=== PATIENT | female | born 1950 | race Caucasian/White ===

== ENCOUNTER 2017-10-19 17:28 | Emergency (ER) | payer MEDICARE ==
[2016-06-22 09:03] VITALS: BMI 31.0
[~2017-10-19 17:28] MED LIST: CYCLOBENZAPRINE5 MG PO
[2017-10-19 18:16] LABS: BASOPHILS 0.3 % (0-2); EOSINOPHILS 1.7 % (0-7); HEMATOCRIT 38.5 % (36.0-48.0); HEMOGLOBIN 12.7 g/dL (12-16); IMMATURE GRANULOCYTES 0.1 % (0-5); LYMPHOCYTES 31.1 % (15-50); MCH 30.8 pg (26.0-34.0); MCV 93.2 fL (80.0-100.0); MEAN PLATELET VOLUME 11.4 fL (7.4-10.4); MONOCYTES 9.2 % (2-11); NEUTROPHILS 57.6 % (40-80); PLATELET COUNT 206 10x3/uL (130-400); RBC 4.13 10x6/uL (4.00-5.40); RDW 13.3 % (11.5-14.5); WBC 7.3 10x3/uL (4.8-10.8)
[2017-10-19 18:19] LABS: ALBUMIN 3.8 g/dL (3.4-5.0); ALKALINE PHOSPHATASE 63 U/L (46-116); ALT (SGPT) 18 U/L (10-68); BILIRUBIN - TOTAL 0.26 mg/dL (0.2-1.3); CALC OSMOLALITY 277 mosm/kg (275-300); CALCIUM 9.2 mg/dL (8.5-10.1); CARBON DIOXIDE 27.2 mmol/L (21.0-32.0); CHLORIDE - SERUM 103 mmol/L (98-107); CREATININE - SERUM 0.9 mg/dL (0.6-1.3); GLUCOSE 121 mg/dL (74-106); POTASSIUM - SERUM 3.5 mmol/L (3.5-5.1); PROTEIN - SERUM 7.4 g/dL (6.4-8.2); SODIUM 139 mmol/L (136-145); UREA NITROGEN 11 mg/dL (7-18); eGFR NON AFRICAN AMERICAN 66 mL/min (90-120)
[2017-10-19 18:30] LABS: CHOL - HDL RATIO 8.4 ratio (2.3-4.1); CHOLESTEROL, TOTAL 278 mg/dL (0-200); CKMB 0.4 U/L (0.0-3.6); CREATINE KINASE 64 UL (21-215); HDL CHOLESTEROL 33 mg/dL (32-96); TRIGLYCERIDE 443 mg/dL (30-200); TROPONIN-I < 0.017 ng/mL (0.000-0.060)
[2017-10-19 18:42] LABS: AMYLASE - SERUM 55 U/L (25-115); LIPASE 302 U/L (73-393)
== END 2017-10-19 21:06 | disposition home or self-care (01) ==
LOC: D.ER 17:28
PROVIDERS: Family Medicine
DX: K59.00 Constipation, unspecified (principal); K21.9 Gastro-esophageal reflux disease without esophagitis; F17.200 Nicotine dependence, unspecified, uncomplicated

== ENCOUNTER → 2018-01-08 09:46 | Outpatient (CLI) | payer MEDICARE ==
[2016-06-22 09:03] VITALS: BMI 31.0
== END | disposition home or self-care (01) ==
LOC: D.CT 09:46
DX: R10.9 Unspecified abdominal pain (principal)

== ENCOUNTER 2018-04-01 11:05 | Day surgery (SDC) | payer MEDICARE ==
[2018-03-31 09:01] LABS: HEMATOCRIT 39.8 % (36.0-48.0); HEMOGLOBIN 13.3 g/dL (12-16); MCH 30.8 pg (26.0-34.0); MCHC 33.4 g/dL (31.0-37.0); MCV 92.1 fL (80.0-100.0); MEAN PLATELET VOLUME 11.1 fL (7.4-10.4); RBC 4.32 10x6/uL (4.00-5.40); RDW 13.3 % (11.5-14.5)
[~2018-04-01] VITALS: Ht 160 cm; Wt 75.3 kg
[~2018-04-01 11:05] MED LIST changes: +BACLOFEN10 MG PO; +MELATONIN5 MG PO; +PEPCID20 MG PO; +PROBIOTIC BLEN1 EACH; +TYLENOL PM1 TAB PO; +VITAMIN C1000 MG PO; +VITAMIN D31000 UNI2 PO; +digestive enzymes PO; +magnesium citrate PO
[2018-04-01 11:52] VITALS: BP 118/69; Ht 160 cm; Wt 75.3 kg
== END 2018-04-01 16:43 | disposition home or self-care (01) ==
LOC: D.OPS 11:05 → D.PAN 14:30 → D.OPS 14:30
PROVIDERS: Anesthesiology
DX: M25.662 Stiffness of left knee, not elsewhere classified (principal); Z53.9 Procedure and treatment not carried out, unspecified reason

== ENCOUNTER 2018-04-04 05:20 | Day surgery (SDC) | payer MEDICARE ==
[~2018-04-04] VITALS: Ht 160 cm; Wt 75.3 kg
--- NOTE | ~2018-04-04 | OP ---
PATIENT NAME: ANGELIQUE WOODALL MEDICAL RECORD: [id number] :52 LOCATION:D.OPS ADMISSION DATE: SURGEON: LUISITO SERNA DO DATE OF OPERATION: 04/04/2018 PROCEDURE PERFORMED: Left knee arthroscopy with partial lateral meniscectomy, partial synovectomy. PREOPERATIVE DIAGNOSES: 1. Left knee pain. 2. Left knee lateral meniscal tear. POSTOPERATIVE DIAGNOSES: 1. Left knee pain. 2. Left knee lateral meniscal tear. 3. Synovitis of the left knee. INDICATIONS: Ms. Woodall is a 67-year-old female who presented to my office with left knee pain. She said it has been locking and giving way on her. She was tired of dealing with that pain and wanted something done. She had an MRI, which demonstrated a lateral meniscal tear and I informed her of the risks and benefits of procedure and did elect. She is 67 and we may encounter some arthritis, but I would inform her on her x-rays that she did not appear, she had good joint line spacing on weightbearing x-rays. She is aware of the risks and benefits of the procedure and consented to the procedure. SURGEON: Luisito Serna DO DESCRIPTION OF THE PROCEDURE: The patient was taken to the operative suite, laid in supine position, given 2 grams Ancef preoperatively. Left lower extremity was prepped and draped in sterile fashion. A timeout was performed, everyone was in agreement of correct site, side, and procedure. After the patient was given antibiotics and timeout was performed, the ligament was prepped and draped. The procedure began with the knee flexed, off the bed starting with the anterolateral portal. This was established with an 11-blade scalpel and then the trocar was entered into the knee up into the suprapatellar pouch. Suprapatellar pouch was entered. The camera was turned on and the water was turned on. The suprapatellar pouch was inspected and seemed to see quite a bit of synovitis including inflamed fat pad underneath the patella. The lateral gutter was then inspected. No loose bodies were seen. The medial gutter was then inspected and no loose bodies there. The knee was then brought from extension to flexion and the medial compartment was entered. The medial portal was then established with an 18-gauge spinal needle and 11-blade scalpel. A probe was then used to probe the medial meniscus. There was no tear seen. The medial meniscus was seemed to be stable. A probe was then used to probe the ACL and again the ACL was very stable and taut. The probe was then parked in the posterior compartment of the knee and the scope was taken back to look to see if there were any loose bodies. There were no loose bodies seen in the posterior lateral aspect. After this was done, the knee was [id number] and then the lateral compartment was entered. The meniscal tear was seen on the middle third of the lateral meniscus just at the innermost portion of the meniscus. The biter was then entered into the knee, the medial portal and bit out and then the shaver was brought in and removed any of the loose meniscal clippings and trimmed up the meniscus back to a stable position. The meniscus was then again probed and no tears were seen and seemed to be stable. The knee was then OPERATIVE REPORT [id number] YESSENIA WOODALLA brought into extension. The shaver was put into the suprapatellar pouch area and the synovitis and fat pad was partially removed. Then the patella was clearly seen and there were no chondromalacia of the patella. Coincidentally, there were no chondromalacia seen of significance in the medial or lateral compartments. Then, the water was turned off and the suction was turned on. Excess fluid was removed from the knee. The portal sites were then closed with 4-0 Monocryl in inverted interrupted fashion and Telfa and Tegaderm were then placed over those and a 4 x 4's, ABD, Webril, and Mikie wrap were then placed and linda hose stockinette was placed up to the knee. The patient was awakened and taken to recovery in stable condition. Blood loss was minimal. There were no complications. TRANSINT:[id number] Voice Confirmation ID: [id number] DOCUMENT ID: [id number] LUISITO SERNA DO at 1550 CC: [id number] DICTATION DATE: 04/04/18 0758 [facility] [employer] [facility] DIRECTOR: 04/04/18 1031 [facility] 04/04/18 [id number] [place] [address]
[2018-04-04 06:27] VITALS: BP 128/63; Ht 160 cm; Wt 75.3 kg
[2018-04-04] MEDS ORDERED: ZOFRAN ODT4 MG/UDTAB PO (07:50)
[2018-04-04] MEDS ORDERED: PERCOCET 5-3251 TAB PO (07:50)
== END 2018-04-04 10:20 | disposition home or self-care (01) ==
LOC: D.OPS 05:20
DX: S83.282A Other tear of lateral meniscus, current injury, left knee, initial encounter (principal); M65.862 Other synovitis and tenosynovitis, left lower leg; Z01.812 Encounter for preprocedural laboratory examination